=== PATIENT | female | born 1970 | race African-American/Black ===

== ENCOUNTER 2018-11-13 02:36 | Emergency (ER) | payer SELFPAY ==
[~2018-11-13] VITALS: Ht 375.9 cm; Wt 71.7 kg
--- NOTE | 2018-11-13 02:58 | NUR ---
Pt. ambulated into ED w/ c/o cough x 2 weeks, reports finishing azithromycin a few days ago, persistent cough noted,
[2018-11-13] MEDS ORDERED: LEVOFLOXACIN 750 MG TABLET PO ONE (03:00)
[2018-11-13] MEDS ORDERED: LEVOFLOXACIN 750 MG TABLET ONE (03:03)
--- NOTE | 2018-11-13 03:05 | NUR ---
Patient discharged to home in stable conditon. Written and verbal after care instructions given. Patient verbalizes understanding of instructions. Pt. d/c w/ prescription per MD order, d/c papers signed, all belongings w/ pt., ID band removed, ambulated off unit w/ steady gait, instructed not to drive, NAD,
== END 2018-11-13 03:07 | disposition home or self-care (01) ==
LOC: ER 02:39
DX: J40 Bronchitis, not specified as acute or chronic (principal); Z88.8 Allergy status to other drugs, medicaments and biological substances
CPT/HCPCS: A4663